=== PATIENT | female | born 1985 | race Caucasian/White ===

== ENCOUNTER 2016-08-25 03:01 | Emergency (ER) | payer SELFPAY ==
[~2016-08-25] VITALS: Ht 152.4 cm; Wt 68.5 kg
[2016-08-25 03:04] VITALS: Ht 152.4 cm; Wt 68.5 kg
[2016-08-25] MEDS ORDERED: SOD CHLORIDE 0.9% 1,000 ML IV STA (03:58)
[2016-08-25] MEDS ORDERED: FAMOTIDINE 20 MG INJ IV STA (03:58)
[2016-08-25] MEDS ORDERED: METOCLOPRAMIDE 10 MG INJ IV ONE (04:00)
--- NOTE | 2016-08-25 04:03 | ERD ---
ER Documentation Chief Complaint Date/Time DATE: 08/25/16 TIME: 04:00 Chief Complaint AP and vomiting 3x tonight HPI Patient is a 30-year-old female, G3, P2 at 8 weeks of who presents with sudden onset, intermittent, cramping epigastric pain associated with vomiting for the last 3 hours. She denies diarrhea, constipation, dysuria, vaginal discharge, back pain. She denies fever. She states that she ate hot wings and thinks that this may have upset her stomach. Her emesis is nonbloody and nonbilious. She denies having lower abdominal pain. She denies experiencing morning sickness during this or previous pregnancies. ROS All systems reviewed and are negative except as per history of present illness. Allergies Allergies: Coded Allergies: No Known Allergy (Unverified , 02/26/15) PMhx/Soc Past medical history: None Past surgical history: None Social history: Denies tobacco or alcohol. Medical and Surgical Hx: pt denies Surgical Hx Hx Alcohol Use: No Hx Substance Use: No Hx Tobacco Use: No Smoking Status: Never smoker FmHx Family History: No coronary disease, No diabetes Physical Exam Vitals Vital Signs Date Time Temp Pulse Resp B/P Pulse Ox O2 Delivery O2 Flow Rate FiO2 08/25/16 03:04 97.6 89 20 125/58 98 Physical Exam Const: Alert, no acute distress. Dry heaving. Head: Atraumatic Eyes: Normal Conjunctiva, no pallor, no icterus ENT: Normal External Ears, Nose and Mouth. Mucous membranes moist Neck: Full range of motion. No meningismus. Resp: Clear to auscultation bilaterally, no wheezes, no rales Cardio: Regular rate and rhythm, no murmurs Abd: Soft, non distended. Tender in the right upper quadrant and epigastrium without rebound or guarding Skin: No petechiae or rashes Back: No midline or flank tenderness Ext: No cyanosis, or edema Neur: Awake and alert, cranial nerves II through XII intact bilaterally, moves and feels 4 extremities appropriately. Psych: Normal Mood and Affect Result Diagram: 08/25/16 0415 Results 24 hrs Laboratory Tests Test 08/25/16 03:45 08/25/16 04:15 Urine Color LT. YELLOW Urine Clarity CLEAR Urine pH 6.0 Urine Specific [place] 1.015 Urine Ketones NEGATIVE Urine Nitrite NEGATIVE Urine Bilirubin NEGATIVE Urine Urobilinogen 0.2 E.U./dL Urine Leukocyte Esterase NEGATIVE Urine Hemoglobin NEGATIVE Urine Glucose NEGATIVE% Urine Total Protein NEGATIVE Sodium Level 142mmol/L Potassium Level 3.8mmol/L Chloride Level 106mmol/L Carbon Dioxide Level 23mmol/L Anion Gap 17 Blood Urea Nitrogen 11mg/dl Creatinine 0.65mg/dl Glucose Level 93mg/dl Calcium Level 9.5mg/dl Total Bilirubin 0.3mg/dl Direct Bilirubin 0.00mg/dl Indirect Bilirubin 0.3mg/dl Aspartate Amino Transf (AST/SGOT) 21IU/L Alanine Aminotransferase (ALT/SGPT) 20IU/L Alkaline Phosphatase 55IU/L Total Protein 7.8g/dl Albumin 5.0g/dl Globulin 2.80g/dl Albumin/Globulin Ratio 1.78 Lipase 73U/L Current Medications Medications (Trade) Dose Ordered Sig/Terrence Route PRN Reason Start Time Stop Time Status Last Admin Dose Admin Sodium Chloride (NS) 1,000 ml @ 1,000 mls/hr Q1H STAT IV 08/25/16 03:58 08/25/16 04:57 08/25/16 04:10 Famotidine (Pepcid Iv) 20 mg ONCE STAT IV 08/25/16 03:58 08/25/16 04:02 DC 08/25/16 04:10 Metoclopramide HCl (Reglan) 10 mg ONCE ONCE IV 08/25/16 04:00 08/25/16 04:01 DC 08/25/16 04:10 Procedures/MDM MDM: Patient is a 30-year-old female who presents to the ER with multiple episodes of vomiting and epigastric cramping discomfort. She was given Pepcid and Reglan. Labs and UA were ordered. The patient is 8 weeks . She has benign abdominal exam. Prior to completion of lab tests, the patient signed out AMA. She stated that her symptoms have completely resolved. She declined a prescription for Diclegis. The patient was aware that her workup was incomplete, and that I could not exclude a serious medical condition. However, I believe that there is very low risk for serious condition given that the patient's symptoms have resolved. Departure Diagnosis: Primary Impression: Abdominal pain Abdominal location: epigastric Qualified Code: R10.13 - Epigastric pain Additional Impression: Vomiting Vomiting type: unspecified Vomiting Intractability: non-intractable Nausea presence: with nausea Qualified Code: R11.2 - Non-intractable vomiting with nausea, unspecified vomiting type Condition: EDDIE Villagomez MD Aug 25, 2016 04:03
[2016-08-25 04:22] LABS: ADD SCAN DIFF NO
[2016-08-25 04:30] LABS: ADD UMIC NO; UR BILIRUBIN (Dip) NEGATIVE (NEGATIVE); UR BLOOD (Dip) NEGATIVE (NEGATIVE); UR CLARITY CLEAR (CLEAR); UR COLOR LT. YELLOW (YELLOW); UR GLUCOSE (Dip) NEGATIVE (NEGATIVE); UR KETONES (Dip) NEGATIVE (NEGATIVE); UR LEUKOCYTE ESTERASE (Dip) NEGATIVE (NEGATIVE); UR NITRITE (Dip) NEGATIVE (NEGATIVE); UR TOTAL PROTEIN (Dip) NEGATIVE (NEGATIVE); UR UROBILINOGEN (Dip) 0.2 E.U./dL (0.1-1.0)
[2016-08-25 04:41] LABS: ALBUMIN/GLOBULIN RATIO 1.78; BILIRUBIN,INDIRECT 0.3 mg/dl (0-1.1); BILIRUBIN,TOTAL 0.3 mg/dl (0.2-1.3); CALCIUM 9.5 mg/dl (8.4-10.2); CREATININE 0.65 mg/dl (0.44-1.00); POTASSIUM 3.8 mmol/L (3.5-5.1); TOTAL PROTEIN 7.8 g/dl (6.1-8.1)
[2016-08-25 04:49] LABS: BASOPHILS % 0.2 % (0.0-2.0); EOSINOPHILS # 0.1 10^3/ul (0.0-0.5); EOSINOPHILS % 0.5 % (0.0-7.0); HEMATOCRIT 40.1 % (37.0-47.0); HEMOGLOBIN 13.8 g/dl (12.0-16.0); LYMPHOCYTES # 1.3 10^3/ul (0.8-2.9); LYMPHOCYTES % 10.3 % (15.0-51.0); MEAN CORPUSCULAR HEMOGLOBIN 28.6 pg (29.0-33.0); MEAN CORPUSCULAR HGB CONC 34.4 g/dl (32.0-37.0); MEAN CORPUSCULAR VOLUME 83.2 fl (82.0-101.0); MEAN PLATELET VOLUME 11.2 fl (7.4-10.4); MONOCYTE # 0.6 10^3/ul (0.3-0.9); MONOCYTES % 4.7 % (0.0-11.0); NEUTROPHIL # 10.4 10^3/ul (1.6-7.5); PLATELET COUNT 248 10^3/UL (140-415); RED BLOOD COUNT 4.82 10^6/ul (4.20-5.40); RED CELL DISTRIBUTION WIDTH 13.4 % (11.5-14.5); WHITE BLOOD COUNT 12.4 10^3/ul (4.8-10.8)
== END 2016-08-25 04:47 | disposition left against medical advice (07) ==
LOC: E/R 03:01
DX: R10.13 Epigastric pain (principal); R11.2 Nausea with vomiting, unspecified
CPT/HCPCS: 80053; 81003; 83690; 85025; J2765; J7030; 36415; 96374; 96375